=== PATIENT | female | born 1945 | race Caucasian/White ===

== ENCOUNTER 2020-09-27 20:57 | Emergency (ER) | payer OTHER ==
[~2020-09-27] VITALS: Ht 160 cm; Wt 99.8 kg
[2020-09-27] MEDS ORDERED: LOVASTATIN 20 M20 MG PO (21:10)
[2020-09-27] MEDS ORDERED: LISINOPRIL10 MG PO (21:10)
[2020-09-27] MEDS ORDERED: HYDROCHLOROTH12.5 M2 PO (21:11)
[2020-09-27] MEDS ORDERED: METFORMIN HCL500 M3 PO (21:11)
[2020-09-27] MEDS ORDERED: BALSALAZIDE DI750 M1 PO (21:11)
[2020-09-27] MEDS ORDERED: ARICEPT10 M1 PO (21:11)
[2020-09-27 22:06] VITALS: BP 128/63
== END 2020-09-27 22:06 | disposition home or self-care (01) ==
LOC: M.ERS 20:57
DX: S51.011A Laceration without foreign body of right elbow, initial encounter (principal); I10 Essential (primary) hypertension; E11.9 Type 2 diabetes mellitus without complications; E78.00 Pure hypercholesterolemia, unspecified; Z88.0 Allergy status to penicillin; Z79.899 Other long term (current) drug therapy; X58.XXXA Exposure to other specified factors, initial encounter; Y93.89 Activity, other specified; Y92.89 Other specified places as the place of occurrence of the external cause; Y99.8 Other external cause status